=== PATIENT | male | born 1975 | race Caucasian/White ===

== ENCOUNTER 2019-07-11 07:56 | Emergency (ER) | payer MEDICAID ==
[~2019-07-11] VITALS: Wt 81.8 kg
[2019-07-11] MEDS ORDERED: DIPHTH/TET/ACEL PERTUSS (ADULT) 0.5 ML VIAL IM* ONE (09:00)
[2019-07-11] MEDS ORDERED: HYDROCODONE/APAP (5/325) TAB PO ONE (09:00)
[2019-07-11] MEDS ORDERED: CEFAZOLIN 2 GM/50 ML (PMX) 50 ML IVPB ONE (10:00)
[2019-07-11] MEDS ORDERED: LIDOCAINE 2% (MDV) 20 ML INJ INJ ONE (11:00)
[2019-07-11] MEDS ORDERED: ONDANSETRON 4 MG INJ IV STA (11:12)
[2019-07-11] MEDS ORDERED: morphine 4 MG/ML VIAL IV STA (11:12)
[2019-07-11] MEDS ORDERED: morphine 4 MG/ML VIAL ONE (11:13)
[2019-07-11] MEDS ORDERED: ONDANSETRON 4 MG INJ ONE (11:13)
[2019-07-11 12:41] VITALS: BP 133/74; PULSE 88; RESP 20
== END 2019-07-11 12:44 | disposition short-term general hospital (02) ==
LOC: FTE 07:56
DX: S52.325 Nondisplaced transverse fracture of shaft of left radius (principal); S31.119A Laceration without foreign body of abdominal wall, unspecified quadrant without penetration into peritoneal cavity, initial encounter; S54.11XA Injury of median nerve at forearm level, right arm, initial encounter; Y08.89XA Assault by other specified means, initial encounter; Z23 Encounter for immunization
CPT/HCPCS: 12002; 73090; 90471; 90715; 96365; 96375; J0690; J2270; J2405; Z7502; Z7610